=== PATIENT | female | born 1945 | race Caucasian/White ===

== ENCOUNTER 2025-11-28 14:31 | Emergency (ER) | payer OTHER, SELFPAY ==
[2025-11-28 14:48] VITALS: BP 215/97
[2025-11-28 15:25] LABS: Hematocrit 39.5 % (37.0-47.0); Hemoglobin 13.1 g/dL (12.0-16.0); Mean Corp Hgb Conc. 33.2 g/dL (33.0-37.0); Mean Corpuscular Volume 93.6 fL (81.0-99.0); Nucleated Red Blood Cells % 0 %; Platelet Count 219 10^3/uL (130-400); Red Cell Dist. Width 13.5 % (11.5-14.5)
[2025-11-28 15:41] LABS: ALT (SGPT) 41 U/L (0-35); AST (SGOT) 36 U/L (14-36); Albumin 4.3 g/dl (3.5-5.0); Alkaline Phosphatase 104 U/L (38-126); Blood Urea Nitrogen 16 mg/dl (7-17); Calcium 9.0 mg/dl (8.4-10.2); Carbon Dioxide 29 mmol/L (22-30); Chloride 102 mmol/L (98-107); Glucose 116 mg/dl (70-99); Potassium 3.7 mmol/L (3.5-5.1); Sodium 139 mmol/L (135-145); Total Protein 7.1 g/dl (6.3-8.2); eGFR > 60.00
--- NOTE | 2025-11-28 19:38 | ED.CVA ---
History of Present Illness
<Israel Fitzpatrick PA-C - Last Filed: 11/28/25 23:12>
General
Chief Complaint: CVA/TIA Symptoms
Time Seen by Provider: 11/28/25 19:17
Onset of Stroke Symptoms
Onset of symptoms known: No
Time pt last seen normal is known: No
History of Present Illness
History of Present Illness:
80-year-old female with history of hypertension presents to the emergency department for evaluation of right eye vision loss for the past 2 weeks. She states that she feels a haze over the right eye. Saw her eye doctor today who diagnosed her with
a central retinal artery occlusion and referred her to the ED for stroke evaluation. She denies any other complaints, denies headache, neck pain, recent fevers, nausea, or vomiting. Has no prior history of hyperlipidemia or A-fib. Does not take
any blood thinners or antiplatelets
Past History
<Israel Fitzpatrick PA-C - Last Filed: 11/28/25 23:12>
Past History
ED Past Medical History: HTN
ED Past Surgical History: None
Social History
Tobacco: Former smoker
Alcohol: Occasional
Personal: Single
Living: alone
Review of Systems
<Israel Fitzpatrick PA-C - Last Filed: 11/28/25 23:12>
Review of Systems
Allergies reviewed?: Yes
All Other Systems: ROS reviewed and negative except as documented in HPI and ROS
Phy Exam
<Israel Fitzpatrick PA-C - Last Filed: 11/28/25 23:12>
Physical Exam
Physical Exam:
GEN: Well appearing, NAD, WDWN
HEENT: Oral mucosa moist, no scleral icterus, no nasal congestion. Light perception only to the right eye, extraocular motion intact
Cardiac: Regular rate
Lung: No respiratory distress, no tachypnea
MSK: No gross deformity or injuries
Skin: Good color, no pallor or jaundice, no rashes
Neuro: AO x3; CN II-XII grossly intact. BUE strength 5/5 in all leblanc, sensation intact and symmetric. BLE strength 5/5 in all leblanc, sensation intact and symmetric
Psych: Calm, cooperative
Course
<Israel Fitzpatrick PA-C - Last Filed: 11/28/25 23:12>
Orders/Labs/Results
Orders:
Orders
11/28/25 14:51
CT Head W/o Iv Contrast Urgent
Comment:
Reason For Exam: no vision R eye 10 days+
11/28/25 15:02
C-Reactive Protein Urgent
Comment: ADD ON
Complete Blood Count/With Diff Urgent
Comprehensive Metabolic Panel Urgent
Erythrocyte Sed Rate Urgent
Comment: ADD ON
11/28/25 19:37
CT Head & Neck Angio W/wo IV Urgent
Comment:
Reason For Exam: CRAO right eye
11/28/25 22:09
Add On- LAB Urgent
Tests Added?: ESR, CRP
Abnormal Lab Results
11/28/25
15:02
Absolute Lymphs (auto) 1.0 L 10^3/uL
(1.2-3.4)
Lymphocytes % 17.8 L %
(20.5-51.1)
ESR 31 H mm/hour
(0-20)
Glucose 116 H mg/dl
(70-99)
ALT 41 H U/L
(0-35)
11/28/25 15:02
11/28/25 15:02
Vital Signs
Initial and Last Documented VS:
Initial Vital Signs
Temp Pulse Resp BP Pulse Ox
97.9 F 61 20 215/97 97
11/28/25 14:48 11/28/25 14:48 11/28/25 14:48 11/28/25 14:48 11/28/25 14:48
Last Documented Vital Signs
Temp Pulse Resp BP Pulse Ox
97.9 F 74 20 160/82 98
11/28/25 14:48 11/28/25 23:00 11/28/25 23:00 11/28/25 23:00 11/28/25 23:00
<Nick Wade MD - Last Filed: 11/28/25 23:04>
Orders/Labs/Results
Orders:
Orders
11/28/25 14:51
CT Head W/o Iv Contrast Urgent
Comment:
Reason For Exam: no vision R eye 10 days+
11/28/25 15:02
C-Reactive Protein Urgent
Comment: ADD ON
Complete Blood Count/With Diff Urgent
Comprehensive Metabolic Panel Urgent
Erythrocyte Sed Rate Urgent
Comment: ADD ON
11/28/25 19:37
CT Head & Neck Angio W/wo IV Urgent
Comment:
Reason For Exam: CRAO right eye
11/28/25 22:09
Add On- LAB Urgent
Tests Added?: ESR, CRP
Abnormal Lab Results
11/28/25
15:02
Absolute Lymphs (auto) 1.0 L 10^3/uL
(1.2-3.4)
Lymphocytes % 17.8 L %
(20.5-51.1)
ESR 31 H mm/hour
(0-20)
Glucose 116 H mg/dl
(70-99)
ALT 41 H U/L
(0-35)
11/28/25 15:02
11/28/25 15:02
Vital Signs
Initial and Last Documented VS:
Initial Vital Signs
Temp Pulse Resp BP Pulse Ox
97.9 F 61 20 215/97 97
11/28/25 14:48 11/28/25 14:48 11/28/25 14:48 11/28/25 14:48 11/28/25 14:48
Last Documented Vital Signs
Temp Pulse Resp BP Pulse Ox
97.9 F 74 20 160/82 98
11/28/25 14:48 11/28/25 23:00 11/28/25 23:00 11/28/25 23:00 11/28/25 23:00
<Israel Fitzpatrick PA-C - Last Filed: 11/28/25 23:12>
MDM/Problems Addressed
MDM/Problems Addressed:
Patient does not wish to be admitted for further. Her reassuring close carotid is no evidence of telemetry or EKG of cardiac dysrhythmia to suggest embolic phenomenon. Patient again declines admission with possible recommend outpatient follow-up
with cardiology for Holter monitor and echocardiogram as well as primary care follow-up. I did recommend she begin baby aspirin daily
<Israel Fitzpatrick PA-C - Last Filed: 11/28/25 23:12>
*Pulse Oximetry
SaO2: 97
Oxygen Mode of Delivery: Room air
Patient hypoxic: no
*Critical Care Note
Total Time (30-74mins, 75-104mins- exclusive of procedures): Not Applicable
ED Attending Note
<Israel Fitzpatrick PA-C - Last Filed: 11/28/25 23:12>
-
Portions of this chart may have been created with voice recognition software.� Occasional wrong word or��sound alike� substitutions may have occurred due to the inherent limitations of voice recognition software.
<Nick Wade MD - Last Filed: 11/28/25 23:04>
ED Attending Note
Patient seen and examined by attending physician: Yes
I performed the substantive portion of visit, reviewed & personally made and approve the management plan that is documented in note by myself or YADI.: Yes
ED Attending Note:
80-year-old female with visual loss to the right eye. Occurred 5 to 10 days ago. No eye pain no headache no other neurologic symptoms. Patient was seen by her head sampler today who noted a retinal artery occlusion.
On exam patient is nontoxic no distress. Speech is normal. No facial droop. Grossly nonfocal. Warm and dry. Perfusing well. Regular rate and rhythm.
CTA is unremarkable.
Impression is recent retinal artery occlusion. Warrants expedited workup for embolic etiology. I recommended the patient admission monitoring for atrial fibrillation and echocardiogram. Timeliness would be important for prevention of any further
stroke. Patient is discussing this with her caregiver and friend.
Patient elected to go home and follow-up. There has been discussions with cardiology. She is aware of the risk of further stroke during this delayed workup
Discharge Plan
Departure
Patient Disposition: Home (Routine Discharge)
Date of Disposition: 11/28/25
Time of Disposition: 22:49
Patient with high blood pressure during this ER visit?: Yes
Discharge Problem:
Central retinal artery occlusion
Instructions: Stroke (DC)
Prescriptions:
No Action
aspirin [Aspir-Low] 81 MG tablet,delayed release (DR/EC)
81 mg PO DAILY
losartan-hydrochlorothiazide 1 EACH tablet
1 ea PO DAILY
oxycodone 5 MG tablet
5 mg PO Q4HPRN PRN (Reason: Pain) Qty: 10 0RF
Referrals:
Oracio Ruvalcaba PA-C [Family Provider, General]
Leonardo Ramos MD [Active, Cardiology]
Activity Restrictions/Additional Instructions:
Begin baby aspirin daily, 81mg
Follow up with nurse orthopaedic
Interventions
Interventions:
*General Assessment Last Done: 11/28/25 14:48
*Neglect/Abuse Screening Last Done: 11/28/25 14:48
*ED COVID-19 Vaccine History Last Done: 11/28/25 19:41
*ED Influenza Vaccine History Last Done: 11/28/25 19:41
[facility] Fall Risk Assessment Tool Last Done: 11/28/25 19:41
*Risk Screen - Suicide (C-SSRS) Last Done: 11/28/25 23:04
*Nursing Disposition Last Done: 11/28/25 23:04
ED- Pulmonary Assessment Last Done: 11/28/25 21:08
ED- Neurological Assessment Last Done: 11/28/25 21:08
ED- Cardiac Assessment Last Done: 11/28/25 21:08
ED Swallowing Screen Last Done: 11/28/25 21:08
Discharge Date and Time
Discharge Date/Time: 11/28/25 23:04
Print Language: HAITIAN
[2025-11-28 19:41] VITALS: BMI 41.9
[2025-11-28 21:51] VITALS: BP 162/88
[2025-11-28 23:00] VITALS: BP 160/82
[2025-11-28 23:20] LABS: C-Reactive Protein 10.10 mg/L (0.0-10.00)
== END 2025-11-28 23:04 | disposition home or self-care (01) ==
LOC: EMR 14:31
PROVIDERS: Emergency Medicine; EMERGENCY PHYSICIAN Emergency Medicine; FAMILY PHYSICIAN Physician Assistant
DX: H34.11 Central retinal artery occlusion, right eye (principal); I10 Essential (primary) hypertension; I48.91 Unspecified atrial fibrillation; Z87.891 Personal history of nicotine dependence; Z88.0 Allergy status to penicillin; Z88.3 Allergy status to other anti-infective agents; Z91.040 Latex allergy status
CPT/HCPCS: 99284; 70450; 70496; 70498; 80053; 85025; 85652; 86140; Q9967